=== PATIENT | male | born 1930 | race Caucasian/White ===

== ENCOUNTER 2018-02-11 19:05 | Emergency (ER) | payer OTHER, MEDICARE ==
--- NOTE | 2018-02-11 19:26 | EDPHY ---
HPI/HX/ROS/PE/MDM Narrative: CHIEF COMPLAINT: LLQ pain, N/V HPI: This patient is an 87 year old male with history of atrial fibrillation and hypertension. He presents today with 4 day history of worsening abdominal pain. This has been constant and feels as if someone is poking him in the side. He has associated nausea and has vomited. He denies increased pain with movement. He was concerned regarding possible constipation and tried Epsom salts with no relief. He has also taken 400mg ibuprofen prior to arrival. He denies any pain with bowel movements or blood in his stool or emesis. No urinary complaints. No fever. He was evaluated for a similar pain in 2014 but workup at that time was inconclusive. He denies chest pain, shortness of breath, or other associated symptoms. REVIEW OF SYSTEMS: Aside from elements discussed in the HPI, a comprehensive 10-point review of systems was reviewed and is negative. PMH: Atrial fibrillation. Pacemaker placed. Hypothyroid. Hypertension. Cardiac bypass. SOCIAL HISTORY: . at bedside. Lives in [place]. PHYSICAL EXAM: General:Patient is alert, in no acute distress. ENT:Eyes are normal to inspection. ENT inspection normal. Neck: Normal inspection. Full range of motion. Respiratory:No respiratory distress. Breath sounds normal bilaterally. Cardiovascular: Regular rate and rhythm. Strong peripheral pulses. Normal cap refill. Abdomen:The abdomen is nontender to palpation. There are no peritoneal signs. There are normal bowel sounds. Back: Normal to inspection. Left flank tenderness. Skin: Normal color. No rash. Warm and dry. Extremities: Normal appearance. Full range of motion. Neuro: Oriented x3. Normal motor function. Normal sensory function. ED Course: 87 y/o male presents with left flank pain and nausea. On exam, the patient indicated the location of his pain was more in the left flank area than in his abdomen. Plan to administer 4mg IV morphine and 4mg IV Zofran for symptom relief. Plan for labs including CBC, chemistries, UA. Plan for CT abdomen/ pelvis to r/o acute processes. 21:[address] Harrington, radiologist. CT abdomen/pelvis negative for diverticulitis or other acute processes. 21:55 Reassessed patient. Discussed imaging results. He is feeling well at this time. He now states that the pain seems to be exacerbated with movement. He endorses some radiation down his leg on occasion. His symptoms seem more consistent with sciatica at this time than acute intraabdominal processes. Plan to discharge patient home in good condition. Provided referral to neurosurgery for further evaluation as well as a prescription for Percocet for pain relief. Follow up and return precautions discussed. The patient is comfortable with this plan. MDM: This patient presents with left sided lower abdominal and flank pain. We performed an extensive workup to exclude kidney stone, bowel obstruction, bowel peforation and diverticulitis, among other pathology and these studies are negative. On re-evaluation, patient's symptoms are now much more consistent with sciatica, worse with movement with some pain radiating down the posterior leg. I offered him admission but he would like to go home. I stressed need for follow-up with PCP. - Data Points Imaging Results: Imaging Impressions Abdomen CT 02/11/18 19:55 Impression: 1. Chronic cirrhosis without ascites 2. New small perisplenic fluid collection, likely an incidental subcapsular hematoma 3. Minimal diverticulosis without diverticulitis. Results called and discussed with Maximo Hong MD, at 02/11/2018 21:33 General information for patients regarding this examination can be found at [email or web address]. If you have questions or comments about this report, please contact me at (hospital) or [phone] (cell). Imaging: Discussed imaging studies w/ callisthenics instructor Radiologist Laboratory Results: Laboratory Results 02/11/18 19:24 02/11/18 19:24 02/11/18 02/11/18 02/11/18 19:45 19:24 19:24 WBC 9.38 10^3/uL 10^3/uL (3.80-9.50) RBC 4.35 10^6/uL L 10^6/uL (4.40-6.38) Hgb 14.7 g/dL g/dL (13.7-17.5) Hct 42.6 % % (40.0-51.0) MCV 97.9 fL fL (81.5-99.8) MCH 33.8 pg pg (27.9-34.1) MCHC 34.5 g/dL g/dL (32.4-36.7) RDW 13.0 % % (11.5-15.2) Plt Count 134 10^3/uL L 10^3/uL (150-400) MPV 11.1 fL fL (8.7-11.7) Neut % (Auto) 85.8 % H % (39.3-74.2) Lymph % (Auto) 8.5 % L % (15.0-45.0) [place] % (Auto) 4.8 % % (4.5-13.0) Eos % (Auto) 0.3 % L % (0.6-7.6) Baso % (Auto) 0.2 % L % (0.3-1.7) Nucleat RBC Rel Count 0.0 % % (0.0-0.2) Absolute Neuts (auto) 8.04 10^3/uL H 10^3/uL (1.70-6.50) Absolute Lymphs (auto) 0.80 10^3/uL L 10^3/uL (1.00-3.00) Absolute Monos (auto) 0.45 10^3/uL 10^3/uL (0.30-0.80) Absolute Eos (auto) 0.03 10^3/uL 10^3/uL (0.03-0.40) Absolute Basos (auto) 0.02 10^3/uL 10^3/uL (0.02-0.10) Absolute Nucleated RBC 0.00 10^3/uL 10^3/uL (0-0.01) Immature Gran % 0.4 % % (0.0-1.1) Immature Gran # 0.04 10^3/uL 10^3/uL (0.00-0.10) Sodium 138 mEq/L mEq/L (135-145) Potassium 4.4 mEq/L mEq/L (3.3-5.0) Chloride 100 mEq/L mEq/L (97-110) Carbon Dioxide 25 mEq/l mEq/l (22-31) Anion Gap 13 mEq/L mEq/L (8-16) BUN 26 mg/dL H mg/dL (7-23) Creatinine 1.0 mg/dL mg/dL (0.7-1.3) Estimated GFR > 60 Glucose 104 mg/dL H mg/dL (70-100) Calcium 9.4 mg/dL mg/dL (8.5-10.4) Urine Color YELLOW Urine Appearance CLEAR Urine pH 6.0 (5.0-7.5) Ur Specific [place] 1.018 (1.002-1.030) Urine Protein NEGATIVE (NEGATIVE) Urine Ketones TRACE H (NEGATIVE) Urine Blood NEGATIVE (NEGATIVE) Urine Nitrate NEGATIVE (NEGATIVE) Urine Bilirubin NEGATIVE (NEGATIVE) Urine Urobilinogen NEGATIVE EU EU (0.2-1.0) Ur Leukocyte Esterase NEGATIVE (NEGATIVE) Urine Glucose NEGATIVE (NEGATIVE) Medications Given: Discontinued Medications Sodium Chloride (Ns) 1,000 mls @ 0 mls/hr IV EDNOW ONE; Wide Open PRN Reason: Protocol Stop: 02/11/18 19:33 Last Admin: 02/11/18 19:44 Dose: 1,000 mls Morphine Sulfate (Morphine) 4 mg IVP EDNOW ONE Stop: 02/11/18 19:54 Last Admin: 02/11/18 20:05 Dose: 4 mg Ondansetron HCl (Zofran) 4 mg IVP EDNOW ONE Stop: 02/11/18 19:54 Last Admin: 02/11/18 20:05 Dose: 4 mg General Time Seen by Provider: 02/11/18 19:16 Initial Vital Signs: Initial Vital Signs Temperature (C) 36.4 C 02/11/18 19:09 Heart Rate 61 02/11/18 19:09 Respiratory Rate 20 02/11/18 19:09 Blood Pressure 162/79 H 02/11/18 19:09 O2 Sat (%) 94 02/11/18 19:09 O2 Delivery Mode Room Air Allergies/Adverse Reactions: epinephrine Allergy (Verified 02/11/18 19:09) Home Medications: Medication Instructions Recorded Amiodarone HCl 04/21/11 Coenzyme Q10 04/21/11 DIOVAN HCT 160-12.5 MG TAB 04/21/11 Fish Oil 04/21/11 Metoprolol Succinate 04/21/11 Selenium 04/21/11 Synthroid 04/21/11 Vitamin B Complete 04/21/11 Vitamin D 04/21/11 Nattokinase 03/14/15 Turmeric 03/14/15 oxyCODONE/APAP 5/325 [Percocet 5 mg PO Q6H PRN #8 tab 02/11/18 5/325] Departure - Departure Disposition: Home, Routine, Self-Care Clinical Impression: Sciatica Qualifiers: Laterality: left Qualified Code(s): M54.32 - Sciatica, left side Condition: Good Instructions: Oxycodone/Acetaminophen (By mouth), Ondansetron (By mouth), Sciatica (ED) Additional Instructions: Follow up with a credentialing specialist within one week. Take Percocet as prescribed as needed for severe pain. Do not take Acetaminophen with Hydrocodone (Vicodin, Lortab) or Oycodone (Percocet). These medications also contain Acetaminophen. No more than 3000mg of Acetaminophen should be taken in 24 hours (for an adult). Return to the emergency department for severe pain, fever, numbness, difficulty walking, change in location or nature of pain or other concerns. Referrals: [facility]IR[facility] TUCKER [Primary Care Provider] - As per Instructions Celso Gibson MD [Medical Doctor] - As per Instructions Prescriptions: oxyCODONE/APAP 5/325 [Percocet 5/325] 5 mg PO Q6H PRN #8 tab PRN Reason: For Pain Report Scribed for: Maximo Hong Report Scribed by: Bailey Limon Date of Report: 02/11/18 Time of Report: 19:22 Physician Review and Approval Statement: Portions of this note were transcribed by an ED scribe. I personally performed the history, physical exam, and medical decision making; and confirm the accuracy of the information in the transcribed note.
[2018-02-11] MEDS ORDERED: NS 1,000 ML IV ONE (19:32)
[2018-02-11] MEDS ORDERED: ONDANSETRON 4 MG/2 ML VIAL IVP ONE (19:53)
[2018-02-11] MEDS ORDERED: IOPAMIDOL (ISOVUE-300) 100 ML BTL ONE (20:10)
[2018-02-11 20:19] LABS: PLATELET COUNT 134 10^3/uL (150-400)
[2018-02-11] MEDS ORDERED: OXYCODONE/APAP 5/325MG PREPACK#4 BTL TAKEHOME ONE (22:02)
[2018-02-11] MEDS ORDERED: ONDANSETRON 4MG PREPACK#2 BTL TAKEHOME ONE (22:02)
[2018-02-11 22:54] VITALS: BP 150/89
== END 2018-02-11 22:53 | disposition home or self-care (01) ==
DX: M54.32 Sciatica, left side (principal); I10 Essential (primary) hypertension; E86.9 Volume depletion, unspecified; Z95.0 Presence of cardiac pacemaker; Z95.1 Presence of aortocoronary bypass graft
CPT/HCPCS: 74177; 96361; 96374; 96375; 99285; J2270; J2405; Q9967

== ENCOUNTER → 2019-03-12 | Outpatient (CLI) | payer OTHER, MEDICARE | LOC: FIMAGING 13:38 ==